=== PATIENT | female | born 1975 | race Caucasian/White ===

== ENCOUNTER 2018-11-13 12:43 | Emergency (ER) | payer OTHER, BC ==
[2018-11-13] MEDS: KETOROLAC 30 MG INJ IM (15:51)
== END 2018-11-13 17:42 | disposition home or self-care (01) ==
LOC: FTE 12:43
DX: S42.401A Unspecified fracture of lower end of right humerus, initial encounter for closed fracture (principal); W01.0XXA Fall on same level from slipping, tripping and stumbling without subsequent striking against object, initial encounter; Y92.9 Unspecified place or not applicable
CPT/HCPCS: 29105; 73080-RT; 73090-RT; 73110-RT; 81025; 96372; 99284-25